=== PATIENT | female | born 1990 | race Caucasian/White ===

== ENCOUNTER 2022-09-09 08:02 | Outpatient (CLI) | payer OTHER ==
[2022-09-09] VITALS (20 sets, daily range): BP systolic 111–136; BP diastolic 73–91
== END 2022-09-09 23:59 | disposition home or self-care (01) ==
LOC: CARD DIAG 08:02
PROVIDERS: ATTEND Internal Medicine Cardiovascular Disease
DX: R42 Dizziness and giddiness (principal)
CPT/HCPCS: 93660